=== PATIENT | female | born 1995 | race Caucasian/White ===

== ENCOUNTER 2018-03-13 23:27 | Emergency (ER) | END 2018-03-14 05:43 | disposition home or self-care (01) ==

== ENCOUNTER 2018-05-26 11:17 | Outpatient (CLI) | payer MEDICAID ==
[~2018-05-26] VITALS: Ht 165.1 cm; Wt 85.4 kg
[~2018-05-26 11:17] MED LIST: PREN1TAB62 PO
[2018-05-26 11:26] VITALS: Ht 165.1 cm; Wt 85.4 kg
[2018-05-26 11:27] VITALS: BP 136/95; PULSE 100; RESP 19
[2018-05-26] MEDS ORDERED: ASPI-818 PO (11:36)
--- NOTE | 2018-05-26 13:43 | PN ---
Triage Information Date/Time Reason for visit: R/o PIH Weeks of Gestation 26+ /Para n/a Diabetes: none Objective Vital Signs Date Temp Pulse Resp B/P (MAP) Pulse Ox O2 O2 Flow FiO2 Time Delivery Rate 05/26/18 98.4 100 19 136/95 Room Air 11:27 (109) Heart Rate: 140's Contractions: None Results/Medications Result Diagram: 05/26/18 1130 05/26/18 1130 Results 24 hrs Laboratory Tests Test 05/26/18 11:30 White Blood Count 12.1 H Red Blood Count 4.10 L Hemoglobin 12.0 Hematocrit 35.3 L Mean Corpuscular Volume 86.1 Mean Corpuscular Hemoglobin 29.3 Mean Corpuscular Hemoglobin Concent 34.0 Red Cell Distribution Width 13.3 Platelet Count 242 Mean Platelet Volume 9.3 Immature Granulocytes % 1.200 H Neutrophils % 71.0 Lymphocytes % 19.1 Monocytes % 7.8 Eosinophils % 0.7 Basophils % 0.2 Nucleated Red Blood Cells % 0.0 Immature Granulocytes # 0.140 H Neutrophils # 8.6 H Lymphocytes # 2.3 Monocytes # 0.9 Eosinophils # 0.1 Basophils # 0.0 Nucleated Red Blood Cells # 0.0 Urine Color COLORLESS Urine Clarity CLEAR Urine pH 7.0 Urine Specific [place] 1.005 Urine Ketones NEGATIVE Urine Nitrite NEGATIVE Urine Bilirubin NEGATIVE Urine Urobilinogen NEGATIVE Urine Leukocyte Esterase NEGATIVE Urine Hemoglobin NEGATIVE Urine Glucose NEGATIVE Urine Total Protein NEGATIVE Sodium Level 141 Potassium Level 4.4 Chloride Level 105 Carbon Dioxide Level 25 Anion Gap 11 Blood Urea Nitrogen 9 Creatinine 0.51 Est Glomerular Filtrat Rate mL/min > 60 Glucose Level 84 Uric Acid 3.0 L Calcium Level 9.3 Total Bilirubin 0.3 Direct Bilirubin 0.00 Indirect Bilirubin 0.3 Aspartate Amino Transf (AST/SGOT) 18 Alanine Aminotransferase (ALT/SGPT) 16 Alkaline Phosphatase 54 Total Protein 7.1 Albumin 3.9 Globulin 3.20 Albumin/Globulin Ratio 1.21 Disposition: Discharge Assessment/Plan Labs reviewed ultrasound reviewed Discharged with precautions Questions answered VALDO BARNES M.D. May 26, 2018 13:43
--- NOTE | 2018-05-26 14:12 | TRIAGE ---
OB Triage Datetime Report Generated by CPN: 05/26/2018 14:12 Datetime: 05/26/2018 13:47 Maternal Assessment Level of Consciousness: Fully Conscious DTR's/Clonus: DTRs 2+; No Clonus Headache: Denies Blurred Vision: No Nausea/Vomiting: Denies RUQ Epigastric Pain: Denies Facial Edema: None Labor Evaluation Frequency: 0 Monitor Mode: External Heart Rate FHR Baseline Rate: 150 Monitor Mode: External US FHR Baseline Changes: No Baseline Change Variability: Moderate 6-25 bpm Accelerations: 15X15 Decelerations: None Category: Category I Pain Presence: None/Denies Datetime: 05/26/2018 11:47 Labor Evaluation Frequency: 0 Monitor Mode: External Heart Rate FHR Baseline Rate: 150 Monitor Mode: External US FHR Baseline Changes: No Baseline Change Variability: Moderate 6-25 bpm Accelerations: 15X15 Decelerations: None Category: Category I Pain Presence: None/Denies Datetime: 05/26/2018 11:41 Stage of : OB Triage Assessment Type: Triage Maternal Assessment Level of Consciousness: Fully Conscious DTR's/Clonus: DTRs 2+; No Clonus Headache: Denies Blurred Vision: No Respiratory Effort: Unlabored; Regular Rhythm; Equal Expansion Breath Sounds, Left: Clear and Equal Breath Sounds, Right: Clear and Equal Nausea/Vomiting: Denies RUQ Epigastric Pain: Denies Lower Extremities Edema: None Upper Extremities Edema: None Facial Edema: None Temperature Route: Axillary Fall Risk Assessment History of Falling: (0) No Secondary Diagnosis: (0) No Ambulatory Aid: (0) Bedrest/Nurse Assist IV Therapy: (0) No Gait: (0) Normal/Bedrest/Immobile Mental Status: (0) Oriented to Own Ability Fall Score: 0 Fall Risk Score Definition: No Risk: No action required Pain Assessment Pain Scale: 0 Pain Presence: None/Denies Pain Type: N/A Datetime: 05/26/2018 11:40 EGA: 26.1 Datetime: 05/26/2018 11:05 Stage of : OB Triage Assessment Type: Triage Time of Arrival: 05/26/2018 11:05 Arrived By: Ambulatory Arrived From: Dr. Rowe Chief Complaint: Send from clinic with orders. High BP in the clinic Movement: Present Contractions: Denies/Absent Rupture of Membranes: Denies Vaginal Bleeding: None Vaginal Discharge: Denies Recent Sexual Intercouse: Denies Abdominal Trauma: Not Applicable Patient Complaints: None Time Provider Notified: 05/26/2018 13:01 Provider Notified: GODFREY Initial Plan: NST, CBC, CMP, Uric Acid, U/A, EFW and BPP Temperature Route: Oral
== END 2018-05-26 14:00 | disposition home or self-care (01) ==
LOC: OBT 11:17 → L-D 11:18 → OBT 14:00
PROVIDERS: ATTEND Obstetrics & Gynecology
DX: O13.2 Gestational [pregnancy-induced] hypertension without significant proteinuria, second trimester (principal); Z3A.26 26 weeks gestation of pregnancy
CPT/HCPCS: 76815; 76818; 80053; 81003; 84560; 85025; Z7500; G0463

== ENCOUNTER 2018-05-28 10:20 | Outpatient (CLI) | payer MEDICAID ==
[~2018-05-28] VITALS: Ht 165.1 cm; Wt 86.7 kg
[~2018-05-28 10:20] MED LIST changes: +ASPI-818 PO
[2018-05-28 10:39] VITALS: BP 125/75; PULSE 104; RESP 18; Ht 165.1 cm; Wt 86.7 kg
--- NOTE | 2018-05-28 12:14 | TRIAGE ---
OB Triage Datetime Report Generated by CPN: 05/28/2018 12:14 Datetime: 05/28/2018 11:30 Stage of : OB Triage Maternal Assessment Level of Consciousness: Fully Conscious Labor Evaluation Frequency: NONE Monitor Mode: External Resting Tone [place]: Relaxed Heart Rate FHR Baseline Rate: 145 Monitor Mode: External US Variability: Moderate 6-25 bpm Accelerations: 15X15 Decelerations: None Category: AGA Pain Assessment Pain Scale: 0 Pain Goal: 3 Vaginal Exam Membrane Status: Intact Vaginal Bleeding: None Datetime: 05/28/2018 10:37 Assessment Type: Triage Maternal Assessment Level of Consciousness: Fully Conscious DTR's/Clonus: DTRs 2+; No Clonus Headache: Denies Blurred Vision: No Respiratory Effort: Unlabored; Regular Rhythm; Equal Expansion Breath Sounds, Left: Clear and Equal Breath Sounds, Right: Clear and Equal Nausea/Vomiting: Denies RUQ Epigastric Pain: Denies Lower Extremities Edema: None Degree: None Upper Extremities Edema: None Degree: None Facial Edema: None Fall Risk Assessment History of Falling: (0) No Secondary Diagnosis: (0) No Ambulatory Aid: (0) Bedrest/Nurse Assist IV Therapy: (0) No Gait: (0) Normal/Bedrest/Immobile Mental Status: (0) Oriented to Own Ability Fall Score: 0 Fall Risk Score Definition: No Risk: No action required Datetime: 05/28/2018 10:34 Monitor Mode: External Monitor Mode: External US Datetime: 05/28/2018 10:26 Time of Arrival: 05/28/2018 10:15 EGA: 26.3 Arrived By: Ambulatory Arrived From: Home Chief Complaint: PT HERE W/ 24 HOUR URINE COLLECTION Movement: Present Rupture of Membranes: Denies Vaginal Bleeding: None Vaginal Discharge: Denies Recent Sexual Intercouse: Denies Abdominal Trauma: Not Applicable Patient Complaints: None Time Provider Notified: 05/28/2018 10:20 Provider Notified: DELSHAD Initial Plan: NST/24 HR URINE Datetime: 05/26/2018 11:41 Fall Score: 0 Fall Risk Score Definition: No Risk: No action required Datetime: 05/26/2018 11:40 EGA: 26.1
--- NOTE | 2018-05-28 17:18 | PN ---
Triage Information Date/Time Reason for visit: 24-hour urine protein Weeks of Gestation 26 weeks and 3 days /Para 001 Diabetes: none Hypertention: none Additional information 23 years old 001 at 26 weeks and 3 days was seen in triage previously for elevated blood pressure in office. However all her blood pressure in triage were within normal limits. A CBC CMP and uric acid also performed which was normal. 24-hour urine protein ordered. Patient collected 24-hour urine protein and presented to triage today for sending the urine to lab. She states good movement. She denies nausea, vomiting, shortness of breath, chest pain, headache, visual changes, vaginal bleeding or LOF. Objective Vital Signs Date Temp Pulse Resp B/P (MAP) Pulse Ox O2 O2 Flow FiO2 Time Delivery Rate 05/28/18 98.2 104 18 125/75 95 Room Air 10:39 (92) Heart Rate: 140's Contractions: None Results/Medications Result Diagram: 05/28/18 1058 Results 24 hrs Laboratory Tests Test 05/28/18 09:00 05/28/18 10:58 Urine Random Creatinine 58.79 Urine Collection Duration 24 Urine Total Volume 24 Hours 1350 Urine Creatinine Timed 24 Creatinine Clearance 119.8 Urine Total Volume (Protein) 1350 Urine Total Protein 24 Hour 121.5 Creatinine 0.46 Disposition: Discharge Assessment/Plan 23-year-old at 26 weeks and 3 days came to triage after collecting 24-ho ur urine protein. She was seen on 05/26/2018 in triage for rule out gestational hypertension, all blood pressure where within normal limits, labs were unremarkable. She collected 24-hour urine protein, result is 121. Results discussed with patient and her primary OB. Sign and symptom of labor, preeclampsia, kick count discussed in detail with patient. She expressed understanding. All of her questions answered. She discharged home in stable condition with follow-up with her primary OB in 2-3 days. WINTER GONZALEZ May 28, 2018 17:17
== END 2018-05-28 12:11 | disposition home or self-care (01) ==
LOC: L-D 10:20 → OBT 10:20
PROVIDERS: ATTEND Obstetrics & Gynecology
DX: O13.2 Gestational [pregnancy-induced] hypertension without significant proteinuria, second trimester (principal); Z3A.26 26 weeks gestation of pregnancy
CPT/HCPCS: 82565; 82575; 84156; Z7500; G0463

== ENCOUNTER 2018-06-30 12:11 | Outpatient (CLI) | payer MEDICAID ==
[~2018-06-30] VITALS: Ht 165.1 cm; Wt 89.3 kg
[2018-06-30 12:35] VITALS: Ht 165.1 cm; Wt 89.3 kg
[2018-06-30 12:42] VITALS: BP 124/83; PULSE 110; RESP 18
[2018-06-30] MEDS ORDERED: ACETAMINOPHEN 325 MG TAB PO ONE (14:30)
--- NOTE | 2018-06-30 15:11 | TRIAGE ---
OB Triage Datetime Report Generated by CPN: 06/30/2018 15:11 Datetime: 06/30/2018 14:30 Stage of : OB Triage Maternal Assessment Level of Consciousness: Fully Conscious Labor Evaluation Frequency: NONE Monitor Mode: External Resting Tone [place]: Relaxed Heart Rate FHR Baseline Rate: 145 Monitor Mode: External US Variability: Moderate 6-25 bpm Accelerations: 15X15 Decelerations: None Category: Category I Pain Assessment Pain Scale: 0 Pain Goal: 3 Vaginal Exam Membrane Status: Intact Vaginal Bleeding: None Datetime: 06/30/2018 13:30 Stage of : OB Triage Maternal Assessment Level of Consciousness: Fully Conscious Labor Evaluation Frequency: NONE Monitor Mode: External Resting Tone [place]: Relaxed Heart Rate FHR Baseline Rate: 145 Monitor Mode: External US Variability: Moderate 6-25 bpm Accelerations: 15X15 Decelerations: None Category: Category I Pain Assessment Pain Scale: 0 Pain Goal: 3 Vaginal Exam Membrane Status: Intact Vaginal Bleeding: None Datetime: 06/30/2018 12:43 Assessment Type: Triage Maternal Assessment Level of Consciousness: Fully Conscious DTR's/Clonus: DTRs 2+; No Clonus Headache: Frontal Blurred Vision: No Respiratory Effort: Unlabored; Regular Rhythm; Equal Expansion Breath Sounds, Left: Clear and Equal Breath Sounds, Right: Clear and Equal Nausea/Vomiting: Denies RUQ Epigastric Pain: Denies Lower Extremities Edema: Bilateral Lower Extremities Degree: 1+ Upper Extremities Edema: None Degree: None Facial Edema: None Fall Risk Assessment History of Falling: (0) No Secondary Diagnosis: (0) No Ambulatory Aid: (0) Bedrest/Nurse Assist IV Therapy: (0) No Gait: (0) Normal/Bedrest/Immobile Mental Status: (0) Oriented to Own Ability Fall Score: 0 Fall Risk Score Definition: No Risk: No action required Datetime: 06/30/2018 12:38 Monitor Mode: External Monitor Mode: External US Datetime: 06/30/2018 12:36 Time of Arrival: 06/30/2018 12:05 EGA: 31.1 Arrived By: Ambulatory Arrived From: Office Chief Complaint: PT. SENT FROM CLINIC FOR EVAL. OF HBP Movement: Present Contractions: Denies/Absent Rupture of Membranes: Denies Vaginal Bleeding: None Vaginal Discharge: Denies Recent Sexual Intercouse: Denies Abdominal Trauma: Not Applicable Patient Complaints: None Time Provider Notified: 06/30/2018 12:15 Provider Notified: DELSHAD Initial Plan: EFW/BPP/CBC/CMP/UA/URIC ACID/ Datetime: 05/28/2018 12:15 Stage of : OB Triage Maternal Assessment Level of Consciousness: Fully Conscious Labor Evaluation Frequency: NONE Monitor Mode: External Resting Tone [place]: Relaxed Heart Rate FHR Baseline Rate: 145 Monitor Mode: External US Variability: Moderate 6-25 bpm Accelerations: 15X15 Decelerations: None Pain Assessment Pain Scale: 0 Pain Goal: 3 Vaginal Exam Membrane Status: Intact Vaginal Bleeding: None Datetime: 05/28/2018 10:37 Fall Score: 0 Fall Risk Score Definition: No Risk: No action required Datetime: 05/28/2018 10:26 EGA: 26.3 Datetime: 05/26/2018 11:41 Fall Score: 0 Fall Risk Score Definition: No Risk: No action required Datetime: 05/26/2018 11:40 EGA: 26.1
--- NOTE | 2018-07-02 09:59 | PN ---
Triage Information Date/Time 06/30/2017 Reason for visit: elevated BP Weeks of Gestation 30 weeks /Para Diabetes: none Hypertention: none Objective Vital Signs Date Temp Pulse Resp B/P (MAP) Pulse Ox O2 O2 Flow FiO2 Time Delivery Rate 06/30/18 98.1 110 18 124/83 Room Air 12:42 (97) Heart Rate: 130's Heart Rate Comments Reactive Results/Medications Result Diagram: 06/30/18 1410 06/30/18 1410 Disposition: Discharge Assessment/Plan No sign of preeclampsia NARA DONAHUE MD Jul 02, 2018 09:59
== END 2018-06-30 15:26 | disposition home or self-care (01) ==
LOC: L-D 12:11 → OBT 12:11
PROVIDERS: ATTEND Obstetrics & Gynecology
DX: O16.3 Unspecified maternal hypertension, third trimester (principal); Z3A.30 30 weeks gestation of pregnancy
CPT/HCPCS: 76815; 76818; 80053; 81003; 84560; 85025; Z7500; Z7610; G0463

== ENCOUNTER 2018-07-21 18:54 | Inpatient (IN) | payer MEDICAID ==
[~2018-07-21] VITALS: Ht 162.6 cm; Wt 94.2 kg
[2018-07-21 19:39] VITALS: BP 131/81; PULSE 115; RESP 19; Ht 162.6 cm; Wt 94.2 kg
[2018-07-21] MEDS ORDERED: ACETAMINOPHEN 325 MG TAB PO PRN (22:00)
[2018-07-21] MEDS: DEXAMETHASONE 4 MG/ML 5 ML INJ IM SCH (23:15)
[2018-07-22] MEDS: DOCUSATE SODIUM 100 MG CAP PO SCH (09:09)
[2018-07-22] MEDS: PRENATAL VITAMIN PO SCH (09:09)
[2018-07-22] MEDS: ASPIRIN (EC) 81 MG TAB PO SCH (11:33)
[2018-07-22] MEDS: DEXAMETHASONE 4 MG/ML 5 ML INJ IM SCH ×2 (11:34→23:20)
--- NOTE | 2018-07-22 20:32 | HP ---
Date/Time of Note Date/Time of Note DATE: 07/22/18 TIME: 20:30 OB - History Hx of Present Chief Complaint: Elevated BP in clinic Estimated Due Date: Aug 31, 2018 : 2 Para: 1 Spontaneous : 0 Therapeutic : 0 Care: Good Care Ultrasounds: Normal mid trimester US Obstetrical Complications: None Medical Complications: None Past Family/Social History * Past Medical, Surgical, Family and Obstetric Histories reviewed from chart. OB Admission Exam Vital Signs Vital Signs Vital Signs Date Temp Pulse Resp B/P (MAP) Pulse Ox O2 O2 Flow FiO2 Time Delivery Rate 07/21/18 98.6 115 19 131/81 Room Air 19:39 (98) Physical Exam HEENT: WNL Heart: Rhythm Normal Lungs: Clear, Equal Abdomen: WNL Extremities: Normal Reflexes: Normal Heart Rate: 130's Accelerations: Accelerations Present Decelerations: No Decelerations Varibility: Moderate Last 72 hours Lab Results CBC & BMP 07/21/18 19:56 Liver Function Test 07/21/18 19:56 Alanine Aminotransferase (ALT/SGPT) 22 Albumin 3.4 Alkaline Phosphatase 90 Aspartate Amino Transf (AST/SGOT) 20 Direct Bilirubin 0.00 Total Protein 6.6 OB Assessment/Plan Reason for admission: other Other Assessment: R/O preeclampsia Plan: Other Other plan: Admit PIH panel 24 hour urine collection NARA Bey MD Jul 22, 2018 20:32
[2018-07-23] MEDS: DOCUSATE SODIUM 100 MG CAP PO SCH (09:11)
[2018-07-23] MEDS: PRENATAL VITAMIN PO SCH (09:11)
--- NOTE | 2018-07-23 09:13 | QN ---
Documentation Comment No complaint Afebrile VSS Strip Reactive Plt, ALT and AST normal Continue with course of steroids Perinatology consult. NARA DONAHUE MD Jul 23, 2018 09:13
[2018-07-23] MEDS: ASPIRIN (EC) 81 MG TAB PO SCH (09:44)
[2018-07-23] MEDS: DEXAMETHASONE 4 MG/ML 5 ML INJ IM SCH (11:11)
--- NOTE | 2018-07-24 03:08 | CONS ---
DATE OF ADMISSION: 07/21/2018 DATE OF CONSULTATION: 07/23/2018 PERINATOLOGY CONSULTATION HISTORY OF PRESENT ILLNESS: The patient is with intrauterine at 34 weeks and 3 days, admit lita secondary to elevated blood pressure. Her blood pressures have been in the moderate range with f ew diastolic blood pressure of 100. She is asymptomatic. OBSTETRIC HISTORY: Significant for prior preeclampsia with delivery at 37 weeks via vaginal delivery . REVIEW OF SYSTEMS: All systems reviewed. They are negative. PHYSICAL EXAMINATION: VITAL SIGNS: Blood pressure is 147/82. Physical exam is deferred. LABORATORY VALUES: AST, ALT, creatinine and platelets are normal. A 24-hour urine for protein is pe nding. heart tone is reassuring. IMPRESSION: Intrauterine at 34 weeks and 3 days with gestational hypertension, possible pr eeclampsia. Currently stable with moderate range blood pressures with few elevated diastolic blood p ressure at 100. Previous preeclampsia with the last with delivery at 37 weeks. Receiving dexamethasone. RECOMMENDATIONS: 1. Monitor blood pressures until tomorrow. If the blood pressures remain in the moderate range, ana paula jordan can be discharged home; however, she is to contact her in-laws to see if they are able to take c are of her and her kids so she can be on modified bed rest. If she can be on modified bed rest, then she can be discharged home if blood pressures are stable. She is asymptomatic. heart tones r eassuring. Otherwise, we will discuss further. 2. Continuous heart tone monitoring. 3. Follow up with a 24-hour urine for protein. After discharge, she needs to be monitored twice wee kly with testing, once a week labs. In the absence of severe preeclampsia, delivery at 37 weeks recommended. Otherwise, at the time of diagnosis of severe preeclampsia. Dictated By: CODEY GONZALEZ MD ST/[facility]S Conf#: [id number] DID#: [id number] CC: NARA DONAHUE MD;*End*
[2018-07-24] MEDS: DOCUSATE SODIUM 100 MG CAP PO SCH (09:06)
[2018-07-24] MEDS: ASPIRIN (EC) 81 MG TAB PO SCH (09:06)
[2018-07-24] MEDS: PRENATAL VITAMIN PO SCH (09:06)
--- NOTE | 2018-07-24 17:45 | QN ---
Documentation Comment No complaint Afebrile VSS Strip Reactive Plt, ALT and AST normal Continue with in hospital care per Perinatology NARA DONAHUE MD Jul 24, 2018 17:45
[2018-07-25] MEDS: PRENATAL VITAMIN PO SCH (08:42)
[2018-07-25] MEDS: DOCUSATE SODIUM 100 MG CAP PO SCH (08:42)
[2018-07-25] MEDS: ASPIRIN (EC) 81 MG TAB PO SCH (08:42)
--- NOTE | 2018-07-25 20:06 | QN ---
Documentation Comment No complaint Afebrile VSS Strip Reactive Continue with in hospital care per Perinatology NARA DONAHUE MD Jul 25, 2018 20:06
[2018-07-26] MEDS: ASPIRIN (EC) 81 MG TAB PO SCH (09:20)
[2018-07-26] MEDS: DOCUSATE SODIUM 100 MG CAP PO SCH (09:20)
[2018-07-26] MEDS: PRENATAL VITAMIN PO SCH (09:20)
--- NOTE | 2018-07-26 17:40 | QN ---
Documentation Comment No complaint Afebrile VSS Strip Reactive Continue with in hospital care. NARA DONAHUE MD Jul 26, 2018 17:40
[2018-07-27] MEDS: DOCUSATE SODIUM 100 MG CAP PO SCH (11:07)
[2018-07-27] MEDS: ASPIRIN (EC) 81 MG TAB PO SCH (11:07)
[2018-07-27] MEDS: PRENATAL VITAMIN PO SCH (11:07)
--- NOTE | 2018-07-27 19:56 | QN ---
Documentation Comment No complaint Afebrile VSS Strip Reactive 3 hour GTT abnormal Diabetic diet and teaching Perinatology follow up NARA DONAHUE MD Jul 27, 2018 19:56
[2018-07-28] MEDS: DOCUSATE SODIUM 100 MG CAP PO SCH (08:33)
[2018-07-28] MEDS: PRENATAL VITAMIN PO SCH (08:33)
[2018-07-28] MEDS: ASPIRIN (EC) 81 MG TAB PO SCH (08:34)
--- NOTE | 2018-07-28 15:36 | PN ---
DATE: 07/28/2018 The patient was admitted secondary to elevated blood pressure. I do recommend in-house management un til delivery given the fact that her blood pressures with diastolic of over 90s more frequent than be fore. Lastly, the patient's home situation is not amenable for rest and also, she has had previous p reeclampsia requiring delivery at 37 weeks. In addition, she was just diagnosed with diabetes, so eligio zabala does need to stay in the hospital in addition for diabetic management. Delivery at 37 weeks is rec ommended unless there is any evidence of severe preeclampsia for any reason or nonreassuring he art tone. In terms of her diabetes, please check with Accu-Cheks fasting premeals and 2 hours after meals, sliding scale until tomorrow when we have more glucose available to see if there is any medica tion need. Dictated By: CODEY GONZALEZ MD ST/[facility] Conf#: [id number] DID#: [id number] CC: NARA DONAHUE MD;*EndCC*
[2018-07-28] MEDS ORDERED: GLUCOSE GEL 15 GRAM TUBE PO PRN ×2 (16:00)
[2018-07-28] MEDS ORDERED: GLUCAGON 1 MG INJ IM PRN (16:00)
[2018-07-28] MEDS ORDERED: GLUCOSE GEL 15 GRAM TUBE BUCCAL PRN (16:00)
[2018-07-28] MEDS ORDERED: DEXTROSE 50% 50 ML SYRINGE IV PRN ×2 (16:00)
[2018-07-28] MEDS: INSULIN ASPART [NOVOLOG] 3 ML PEN SC SCH ×2 (17:03→21:00)
[2018-07-28] MEDS: ACCU-CHEK XX SCH ×3 (17:03→21:14)
--- NOTE | 2018-07-28 19:03 | QN ---
Documentation Comment No complaint afebrile BP 150/106 Strip Reactive Monitor blood glucose Management of GDM per Perinatology Continue in hospital care NARA DONAHUE MD Jul 28, 2018 19:03
[2018-07-29] MEDS: ACCU-CHEK XX SCH ×8 (07:30→21:00)
[2018-07-29] MEDS: INSULIN ASPART [NOVOLOG] 3 ML PEN SC SCH ×4 (07:35→21:00)
[2018-07-29] MEDS: DOCUSATE SODIUM 100 MG CAP PO SCH (09:00)
[2018-07-29] MEDS: ASPIRIN (EC) 81 MG TAB PO SCH (09:00)
[2018-07-29] MEDS: PRENATAL VITAMIN PO SCH (09:00)
--- NOTE | 2018-07-29 13:50 | QN ---
Documentation Comment No complaint Afebrile BP 150's/90's Strip Reactive Continue with in hospital care. NARA DONAHUE MD Jul 29, 2018 13:50
[2018-07-30] MEDS: ACCU-CHEK XX SCH ×8 (07:30→21:39)
[2018-07-30] MEDS: INSULIN ASPART [NOVOLOG] 3 ML PEN SC SCH ×4 (07:35→21:00)
[2018-07-30] MEDS: ASPIRIN (EC) 81 MG TAB PO SCH (09:01)
[2018-07-30] MEDS: DOCUSATE SODIUM 100 MG CAP PO SCH (09:01)
[2018-07-30] MEDS: PRENATAL VITAMIN PO SCH (09:01)
--- NOTE | 2018-07-30 16:59 | QN ---
Documentation Comment No complaint Afebrile BP 153/104 strip Reactive Plt, ALT, AST normal Continue with in hospital care. NARA DONAHUE MD Jul 30, 2018 16:59
[2018-07-31] MEDS: ACCU-CHEK XX SCH ×8 (07:30→21:00)
[2018-07-31] MEDS: INSULIN ASPART [NOVOLOG] 3 ML PEN SC SCH ×4 (07:35→21:00)
[2018-07-31] MEDS: DOCUSATE SODIUM 100 MG CAP PO SCH (09:26)
[2018-07-31] MEDS: PRENATAL VITAMIN PO SCH (09:27)
[2018-07-31] MEDS: ASPIRIN (EC) 81 MG TAB PO SCH (09:28)
--- NOTE | 2018-07-31 19:10 | QN ---
Documentation Comment No complaint Afebrile BP 155/93 Strip Reactive Continue with in hospital care. NARA DONAHUE MD Jul 31, 2018 19:10
[2018-08-01] MEDS: INSULIN ASPART [NOVOLOG] 3 ML PEN SC SCH (08:52)
[2018-08-01] MEDS: ACCU-CHEK XX SCH ×4 (08:52→20:22)
[2018-08-01] MEDS: DOCUSATE SODIUM 100 MG CAP PO SCH (08:53)
[2018-08-01] MEDS: PRENATAL VITAMIN PO SCH (08:53)
[2018-08-01] MEDS: ASPIRIN (EC) 81 MG TAB PO SCH (08:53)
--- NOTE | 2018-08-01 13:46 | QN ---
Documentation Comment No complaint Afebrile VSS Strip Reactive stable Continue with in hospital care. NARA DONAHUE MD Aug 01, 2018 13:46
[2018-08-02] MEDS: ACCU-CHEK XX SCH ×4 (07:30→20:05)
[2018-08-02] MEDS: ASPIRIN (EC) 81 MG TAB PO SCH (09:28)
[2018-08-02] MEDS: PRENATAL VITAMIN PO SCH (09:28)
[2018-08-02] MEDS: DOCUSATE SODIUM 100 MG CAP PO SCH (09:28)
--- NOTE | 2018-08-02 17:15 | QN ---
Documentation Comment No complaint Afebrile VSS Strip Reactive Stable Continue with in hospital care. NARA DONAHUE MD Aug 02, 2018 17:15
[2018-08-03] MEDS: ACCU-CHEK XX SCH ×4 (07:44→20:07)
[2018-08-03] MEDS: PRENATAL VITAMIN PO SCH (08:59)
[2018-08-03] MEDS: DOCUSATE SODIUM 100 MG CAP PO SCH (08:59)
[2018-08-03] MEDS: ASPIRIN (EC) 81 MG TAB PO SCH (08:59)
--- NOTE | 2018-08-03 16:46 | QN ---
Documentation Comment No complaint Afebrile VSS SStrip Reactive Plt, ALT and AST normal Continue with in hospital care. NARA DONAHUE MD Aug 03, 2018 16:46
[2018-08-04] MEDS: ACCU-CHEK XX SCH ×4 (08:07→20:00)
[2018-08-04] MEDS: ASPIRIN (EC) 81 MG TAB PO SCH (08:31)
[2018-08-04] MEDS: PRENATAL VITAMIN PO SCH (08:32)
[2018-08-04] MEDS: DOCUSATE SODIUM 100 MG CAP PO SCH (08:32)
--- NOTE | 2018-08-04 20:15 | QN ---
Documentation Comment No complaint Afebrile VSS Strip Reactive Continue with in hospital care. NARA DONAHUE MD Aug 04, 2018 20:15
[2018-08-05] MEDS: DOCUSATE SODIUM 100 MG CAP PO SCH (09:11)
[2018-08-05] MEDS: ASPIRIN (EC) 81 MG TAB PO SCH (09:11)
[2018-08-05] MEDS: PRENATAL VITAMIN PO SCH (09:11)
[2018-08-05] MEDS: ACCU-CHEK XX SCH ×3 (09:12→21:02)
--- NOTE | 2018-08-05 20:19 | QN ---
Documentation Comment No complaint Afebrile BP 145/90 Strip Reactive Stable Continue with in hospital care. NARA DONAHUE MD Aug 05, 2018 20:19
[2018-08-06] MEDS: ACCU-CHEK XX SCH ×4 (08:00→20:03)
[2018-08-06] MEDS: PRENATAL VITAMIN PO SCH (08:01)
[2018-08-06] MEDS: ASPIRIN (EC) 81 MG TAB PO SCH (08:01)
[2018-08-06] MEDS: DOCUSATE SODIUM 100 MG CAP PO SCH (08:01)
--- NOTE | 2018-08-06 22:08 | QN ---
Documentation Comment No complaint afebrile BP 140 /87 Strip Reactive Plt, ALT, AST normal Continue with in hospital care. NARA DONAHUE MD Aug 06, 2018 22:08
[2018-08-07] MEDS: PRENATAL VITAMIN PO SCH (08:50)
[2018-08-07] MEDS: DOCUSATE SODIUM 100 MG CAP PO SCH (08:50)
[2018-08-07] MEDS: ASPIRIN (EC) 81 MG TAB PO SCH (08:50)
--- NOTE | 2018-08-07 13:44 | QN ---
Documentation Comment No complaint Afebrile VSS Strip Reactive Continue with in hospital care NARA DONAHUE MD Aug 07, 2018 13:44
[2018-08-07] MEDS: ACCU-CHEK XX SCH (20:05)
[2018-08-08] MEDS: ACCU-CHEK XX SCH ×3 (08:34→21:22)
[2018-08-08] MEDS: DOCUSATE SODIUM 100 MG CAP PO SCH (08:58)
[2018-08-08] MEDS: PRENATAL VITAMIN PO SCH (08:58)
[2018-08-08] MEDS: ASPIRIN (EC) 81 MG TAB PO SCH (08:58)
--- NOTE | 2018-08-08 10:10 | QN ---
Documentation Comment No complaint Afebrile BP 128/92 Strip Reactive stable Continue with in hospital care. NARA DONAHUE MD Aug 08, 2018 10:10
[2018-08-09] MEDS: PRENATAL VITAMIN PO SCH (09:23)
[2018-08-09] MEDS: DOCUSATE SODIUM 100 MG CAP PO SCH (09:23)
[2018-08-09] MEDS: ACCU-CHEK XX SCH ×4 (09:23→20:05)
[2018-08-09] MEDS: ASPIRIN (EC) 81 MG TAB PO SCH (09:24)
--- NOTE | 2018-08-09 16:40 | QN ---
Documentation Comment No complaint afebrile VSS Strip Reactive Plan: Induction of labor on 08/10/2018. NARA DONAHUE MD Aug 09, 2018 16:40
[2018-08-10] MEDS: ACCU-CHEK XX SCH ×4 (07:49→20:35)
[2018-08-10] MEDS: ASPIRIN (EC) 81 MG TAB PO SCH (08:33)
[2018-08-10] MEDS: DOCUSATE SODIUM 100 MG CAP PO SCH (08:33)
[2018-08-10] MEDS: PRENATAL VITAMIN PO SCH (08:33)
--- NOTE | 2018-08-10 17:40 | QN ---
Documentation Comment No complaint Afebrile VSS Strip Reactive plan: Induction of labor NARA DONAHUE MD Aug 10, 2018 17:40
[2018-08-10] MEDS ORDERED: OXYTOCIN 30 UNITS/LR 500 ML IV PRN (18:00)
[2018-08-10] MEDS ORDERED: MISOPROSTOL 200 MCG TAB PR PRN (18:00)
[2018-08-10] MEDS ORDERED: OXYTOCIN 30 UNITS/LR 500 ML IV SCH ×2 (18:00)
[2018-08-10] MEDS ORDERED: METHYLERGONOVINE 0.2 MG INJ IM PRN (18:00)
[2018-08-10] MEDS ORDERED: AMPICILLIN 2 GM/NS (PMX) 100 ML IV ONE (18:00)
[2018-08-10] MEDS ORDERED: BUTORPHANOL 2 MG INJ IV PRN ×2 (18:00)
[2018-08-10] MEDS ORDERED: CARBOPROST 250 MCG INJ IM PRN (18:00)
[2018-08-10] MEDS ORDERED: LIDOCAINE 1% (MPF) 30 ML INJ INJ PRN (18:00)
[2018-08-10] MEDS: LACTATED RINGER'S 1,000 ML IV SCH (20:43)
[2018-08-10] MEDS: MISOPROSTOL 50 MCG CAPSULE PO SCH (21:09)
[2018-08-11] MEDS: MISOPROSTOL 50 MCG CAPSULE PO SCH ×3 (01:11→10:58)
[2018-08-11] MEDS: AMPICILLIN 1 GM/NS (PMX) 50 ML IV SCH ×5 (01:11→17:02)
[2018-08-11] MEDS: DEXTROSE 5%-LR 1,000 ML IV PRN ×2 (06:07→16:25)
[2018-08-11] MEDS: DOCUSATE SODIUM 100 MG CAP PO SCH (09:00)
[2018-08-11] MEDS ORDERED: OXYTOCIN 30 UNITS/LR 500 ML IV SCH (12:30)
--- NOTE | 2018-08-11 14:41 | PREAC ---
Date/Time of Note Date/Time of Note DATE: 08/11/18 TIME: 14:40 Anesthesia Eval and Record Evaluation Time Pre-Procedure Interview DATE: 08/11/18 TIME: 14:40 Age 23 Sex female NPO: 8 hrs Preoperative diagnosis labor pain Planned procedure labor epidural Past Medical History Past Medical History: None Surgery & Anesthesia Issues No known issue Meds Anticoagulation: No Beta Ivana within 24 hr: No Reason Beta Ivana not given: Pt. not on B-Ivana Reported Medications Aspirin (Aspirin Low Dose) 81 Mg Tablet.dr, 81 MG PO DAILY, #30 TAB 05/26/18 Vit-Iron Fumarate-FA ( Vitamin Tablet) 1 Each Tablet, 1 TAB PO DAILY, TAB 02/13/16 Current Medications Docusate Sodium (Colace) 100 mg DAILY PO Last administered on 08/10/18at 08:33; Admin Dose 100 MG; Start 07/22/18 at 09:00 Acetaminophen (Tylenol Tab) 650 mg Q4H PRN PO .PAIN OR TEMP; Start 07/21/18 at 22:00 Miscellaneous Information 1 ea NOTE XX ; Start 07/28/18 at 16:00 Glucose (Glutose) 15 gm Q15M PRN PO DECREASED GLUCOSE; Start 07/28/18 at 16:00 Glucose (Glutose) 22.5 gm Q15M PRN PO DECREASED GLUCOSE; Start 07/28/18 at 16:00 Dextrose (D50w Syringe) 25 ml Q15M PRN IV DECREASED GLUCOSE; Start 07/28/18 at 16:00 Dextrose (D50w Syringe) 50 ml Q15M PRN IV DECREASED GLUCOSE; Start 07/28/18 at 16:00 Glucagon (Glucagen) 1 mg Q15M PRN IM DECREASED GLUCOSE; Start 07/28/18 at 16:00 Glucose (Glutose) 15 gm Q15M PRN BUCCAL DECREASED GLUCOSE; Start 07/28/18 at 16:00 Lactated Ringer's 1,000 ml @ 125 mls/hr Q8H IV Last administered on 08/10/18at 20:43; Admin Dose 125 MLS/HR; Start 08/10/18 at 20:00; Stop 08/12/18 at 08:00 Ampicillin 50 ml @ 100 mls/hr Q4H IV Last administered on 08/11/18at 13:19; Admin Dose 100 MLS/HR; Start 08/10/18 at 22:00 Butorphanol Tartrate (Stadol) 1 mg Q2H PRN IV .PAIN; Start 08/10/18 at 18:00 Butorphanol Tartrate (Stadol) 2 mg Q2H PRN IV .PAIN; Start 08/10/18 at 18:00 Lidocaine (Xylocaine 1% (Mpf)) 30 ml ONCE PRN INJ .EPISIOTOMY; Start 08/10/18 at 18:00 Oxytocin/Lactated Ringer's 500 ml @ 500 mls/hr ONCE POST IV ; Start 08/10/18 at 18:00 Oxytocin/Lactated Ringer's 500 ml @ 125 mls/hr POST IV ; Start 08/10/18 at 18:00 Oxytocin/Lactated Ringer's 500 ml @ 0 mls/hr ONCE PRN IV .VAGINAL BLEEDING; Start 08/10/18 at 18:00 Methylergonovine Maleate (Methergine) 0.2 mg ONCE PRN IM .VAGINAL BLEEDING; Start 08/10/18 at 18:00 Carboprost Tromethamine (Hemabate) 250 mcg ONCE PRN IM .VAGINAL BLEEDING; Start 08/10/18 at 18:00 Misoprostol (Cytotec) 1,000 mcg ONCE PRN MD .VAGINAL BLEEDING; Start 08/10/18 at 18:00 Dextrose/Lactated Ringer's 1,000 ml @ 125 mls/hr Q8H PRN IV DECREASED GLUCOSE Last administered on 08/11/18at 06:07; Admin Dose 125 MLS/HR; Start 08/10/18 at 23:00 Oxytocin/Lactated Ringer's 500 ml @ 0 mls/hr FOR INDUCTION IV Last administered on 08/11/18at 13:38; Admin Dose 1 MLS/HR; Start 08/11/18 at 12:30 Meds reviewed: Yes Allergies Coded Allergies: No Known Allergy (Unverified , 07/21/18) Allergies Reviewed: Yes Labs/Studies Labs Reviewed: Reviewed by anesthesiologist Result Diagram: 08/10/18 1806 08/10/18 1806 Laboratory Tests 08/10/18 18:06 Blood Bank Test 08/10/18 18:06 Antibody Screen NEGATIVE Blood Type O POSITIVE test: Positive Pre-procedure Exam Airway: Adequate mouth opening, Adequate thyromental dist Mallampati: Mallampati III Teeth: Normal Lung: Normal Heart: Normal ASA Physical Status ASA physical status: 2 Emergency: None Planned Anesthetic Neuraxial: Epidural Planned Pain Management Epidural, Parenteral pain med, Other neuraxial med Pre-operative Attestations Prior to commencing anesthesia and surgery, the patient was re-evaluated, there was verification of: *The patient's identity *The results of appropriate recent lab work and preoperative vital signs *The above evaluation not changing prior to induction *Anesthetic plan, risk benefits, alternative and complications discussed with patient/family; questions answered; patient/family understands, accepts and wishes to proceed. MARLA ANDINO MD Aug 11, 2018 14:41
[2018-08-11] MEDS ORDERED: ONDANSETRON 4 MG INJ IV PRN (15:00)
[2018-08-11] MEDS ORDERED: ZOLPIDEM 5 MG TAB PO PRN (15:00)
[2018-08-11] MEDS ORDERED: DIPHENHYDRAMINE 50 MG INJ IV PRN (15:00)
[2018-08-11] MEDS ORDERED: FENTAnyl 2MCG/ML-ROPIV 0.2% 100 ML BAG EPI SCH (15:00)
[2018-08-11] MEDS ORDERED: NALOXONE (0.4 MG/ML) INJ IV PRN (15:00)
[2018-08-11] MEDS ORDERED: HYDROmorphONE 0.5 MG/0.5 ML SYG IV PRN ×2 (15:00)
[2018-08-11] MEDS ORDERED: KETOROLAC 30 MG INJ IV PRN (15:00)
[2018-08-11] MEDS: LACTATED RINGER'S 1,000 ML IV SCH ×2 (16:01→16:02)
--- NOTE | 2018-08-11 18:15 | LDN ---
Date/Time of Note Date/Time of Note DATE: 08/11/18 TIME: 18:13 Delivery Summary Weeks of Gestation 37 weeks Placenta Delivered: Spontaneously Meconium: none Episiotomy: No Perineal laceration: 0 Anesthesia type: Epidural Estimated blood loss: 200 Sponge & Needle done & correct: Yes All needle counts correct: Yes Any foreign bodies felt in the: No Infant Delivery Information Sex Sex: male Apgars 1 Minute: 8 5 Minute: 9 Suctioning Nose & mouth suctioned at lorena: No Delee suction performed: No Umbilical Cord Umbilical cord with: 3 Vessels Cord presentations: nuchal cord Nuchal cord present X: 1 Cord Blood was obtained: Yes Mother & Baby Disposition Disposition Mom & Baby to Maternity; Good: Yes NARA DONAHUE MD Aug 11, 2018 18:15
[2018-08-11 20:00] VITALS: BP 147/112; PULSE 94; RESP 19
[2018-08-11 21:00] VITALS: BP 154/115; PULSE 111; RESP 20
[2018-08-11] MEDS ORDERED: HYDROCODONE/APAP (5/325) TAB PO PRN (21:00)
[2018-08-11] MEDS ORDERED: ACETAMINOPHEN 325 MG TAB PO PRN (21:00)
[2018-08-11] MEDS ORDERED: WITCH HAZEL/GLYCERIN PAD PR PRN (21:00)
[2018-08-11] MEDS ORDERED: MISOPROSTOL 200 MCG TAB PR PRN (21:00)
[2018-08-11] MEDS ORDERED: OXYTOCIN 30 UNITS/LR 500 ML IV PRN (21:00)
[2018-08-11] MEDS ORDERED: DIBUCAINE 1% 30 GM OINT TOP PRN (21:00)
[2018-08-11] MEDS ORDERED: CARBOPROST 250 MCG INJ IM PRN (21:00)
[2018-08-11] MEDS ORDERED: BENZOCAINE 20% 56 ML SPRAY TOP PRN (21:00)
[2018-08-11] MEDS: SENNA/DOCUSATE NA (8.6MG/50MG) TAB PO SCH (21:52)
[2018-08-11] MEDS: LACTATED RINGER'S 1,000 ML IV* SCH (21:59)
[2018-08-11 22:00] VITALS: BP 153/104; PULSE 89; RESP 19
[2018-08-11 23:00] VITALS: BP 150/101; PULSE 85; RESP 19
[2018-08-11] MEDS: IBUPROFEN 600 MG TAB PO SCH (23:39)
[2018-08-12] VITALS: BP 146/96; PULSE 90; RESP 20
[2018-08-12 02:00] VITALS: BP 144/93; PULSE 83; RESP 18
[2018-08-12 04:00] VITALS: BP 137/89; PULSE 68; RESP 19
[2018-08-12] MEDS: LACTATED RINGER'S 1,000 ML IV* SCH ×3 (06:00→20:42)
[2018-08-12] MEDS: IBUPROFEN 600 MG TAB PO SCH ×4 (06:05→23:47)
[2018-08-12 08:30] VITALS: BP 126/80; PULSE 76; RESP 18
[2018-08-12] MEDS: SENNA/DOCUSATE NA (8.6MG/50MG) TAB PO SCH ×2 (10:38→21:46)
[2018-08-12 16:13] VITALS: BP 130/78; PULSE 77; RESP 18
[2018-08-12 19:10] VITALS: BP 136/90; PULSE 73; RESP 18
--- NOTE | 2018-08-12 22:32 | PN ---
Date/Time of Note Date/Time of Note DATE: 08/12/18 TIME: 22:26 OB Subjective Subjective Subjective PPD# 1 Patient is doing well. She denies nausea, vomiting, shortness of breath, chest pain, headache. She has been ambulating without difficulty, tolerating regular diet. Pain is well controlled on current medications OB Objective Objective Objective VS - Last 72 Hours, by Label Date Temp Pulse Resp B/P (MAP) Pulse Ox O2 O2 Flow FiO2 Time Delivery Rate 08/12/18 98.3 77 18 130/78 Room Air 16:13 (95) 08/12/18 98.3 76 18 126/80 Room Air 08:30 (95) 08/12/18 98.5 68 19 137/89 Room Air 04:00 (105) 08/12/18 83 18 144/93 Room Air 02:00 (110) 08/12/18 98.4 90 20 146/96 Room Air 00:00 (113) 08/11/18 85 19 150/101 Room Air 23:00 (117) 08/11/18 89 19 153/104 Room Air 22:00 (120) 08/11/18 111 20 154/115 Room Air 21:00 (128) 08/11/18 98.2 94 19 147/112 Room Air 20:00 (124) General: AAO X 3, comfortable, NAD, appropriate mood and affect. ABD: +BS. Soft, non-tender. Uterus 2 cm below umbilicus Flank: No CVA tenderness (B/L) LE: Mild edema. No clubbing, cyanosis, thigh or calf tenderness (B/L). Homans 'sign is negative Laboratory Tests Test 08/11/18 01:13 08/11/18 05:24 08/11/18 08:58 08/11/18 13:14 Bedside Glucose 134 mg/dL 91 mg/dL 99 mg/dL 92 mg/dL Test 08/11/18 15:06 08/11/18 17:01 08/11/18 18:25 08/11/18 20:14 Bedside Glucose 79 mg/dL 89 mg/dL Sodium Level 138 mmol/L Potassium Level 4.0 mmol/L Chloride Level 109 mmol/L Carbon Dioxide 21 mmol/L Level Anion Gap 8 Blood Urea Nitrogen 7 mg/dl Creatinine 0.56 mg/dl Est Glomerular > 60 mL/min Filtrat Rate mL/min Glucose Level 84 mg/dl Uric Acid 4.9 mg/dl Calcium Level 9.6 mg/dl Total Bilirubin 0.7 mg/dl Direct Bilirubin 0.00 mg/dl Indirect Bilirubin 0.7 mg/dl Aspartate Amino 39 IU/L Transf (AST/SGOT) Alanine 27 IU/L Aminotransferase (A LT/SGPT) Alkaline 168 IU/L Phosphatase Total Protein 6.5 g/dl Albumin 3.5 g/dl Globulin 3.00 g/dl Albumin/Globulin 1.16 Ratio White Blood Count 13.1 10^3/ul Red Blood Count 4.28 10^6/ul Hemoglobin 12.4 g/dl Hematocrit 36.1 % Mean Corpuscular 84.3 fl Volume Mean Corpuscular 29.0 pg Hemoglobin Mean Corpuscular 34.3 g/dl Hemoglobin Concent Red Cell 13.2 % Distribution Width Platelet Count 167 10^3/UL Mean Platelet 9.8 fl Volume Immature 0.800 % Granulocytes % Neutrophils % 81.2 % Lymphocytes % 10.5 % Monocytes % 7.1 % Eosinophils % 0.2 % Basophils % 0.2 % Nucleated Red Blood 0.0 /100WBC Cells % Immature 0.110 10^3/ul Granulocytes # Neutrophils # 10.7 10^3/ul Lymphocytes # 1.4 10^3/ul Monocytes # 0.9 10^3/ul Eosinophils # 0.0 10^3/ul Basophils # 0.0 10^3/ul Nucleated Red Blood 0.0 10^3/ul Cells # Test 08/12/18 07:24 White Blood Count 10.3 10^3/ul Red Blood Count 4.09 10^6/ul Hemoglobin 11.6 g/dl Hematocrit 34.3 % Mean Corpuscular 83.9 fl Volume Mean Corpuscular 28.4 pg Hemoglobin Mean Corpuscular 33.8 g/dl Hemoglobin Concent Red Cell 13.2 % Distribution Width Platelet Count 164 10^3/UL Mean Platelet 10.4 fl Volume Immature 0.800 % Granulocytes % Neutrophils % 67.2 % Lymphocytes % 20.5 % Monocytes % 10.2 % Eosinophils % 0.9 % Basophils % 0.4 % Nucleated Red Blood 0.0 /100WBC Cells % Immature 0.080 10^3/ul Granulocytes # Neutrophils # 6.9 10^3/ul Lymphocytes # 2.1 10^3/ul Monocytes # 1.1 10^3/ul Eosinophils # 0.1 10^3/ul Basophils # 0.0 10^3/ul Nucleated Red Blood 0.0 10^3/ul Cells # OB Assessment/Plan Other plan: 23 years old 2 para 2001 with A1 gestational diabetes and preeclampsia s/p normal vaginal delivery at 37 weeks. PPD#1 - AF, VSS - Baby is doing well, at bed side. She is bonding well - Contraception methods with R/B/A/FR discussed - Continue care - She currently has normal blood pressure - Discharge home tomorrow - Rx and instruction given - Follow up in 2 and 6 weeks at clinic 2. Gestational diabetes A1: Blood sugar well controlled antepartum and . 75 g 2-hour glucose test at 6-12 weeks after delivery discussed with patient. WINTER GONZALEZ Aug 12, 2018 22:32
[2018-08-13] MEDS: IBUPROFEN 600 MG TAB PO SCH ×3 (05:44→17:39)
[2018-08-13 08:30] VITALS: BP 131/87; PULSE 64; RESP 18
[2018-08-13] MEDS ORDERED: DIPHTH/TET/ACEL PERTUSS (ADULT) 0.5 ML VIAL IM* ONE (09:00)
[2018-08-13] MEDS: SENNA/DOCUSATE NA (8.6MG/50MG) TAB PO SCH (09:00)
--- NOTE | 2018-08-13 13:01 | PN ---
Date/Time of Note Date/Time of Note DATE: 08/13/18 TIME: 12:55 OB Subjective Subjective Subjective PPD# 2 Patient is doing well. She denies nausea, vomiting, shortness of breath, chest pain, headache. She has been ambulating without difficulty, tolerating regular diet. Pain is well controlled on current medications OB Objective Objective Objective Vital Signs Date Temp Pulse Resp B/P (MAP) Pulse Ox O2 O2 Flow FiO2 Time Delivery Rate 08/13/18 98.0 64 18 131/87 Room Air 08:30 (102) General: AAO X 3, comfortable, NAD, appropriate mood and affect. ABD: +BS. Soft, non-tender. Uterus 2 cm below umbilicus Flank: No CVA tenderness (B/L) LE: Mild edema. No clubbing, cyanosis, thigh or calf tenderness (B/L). Homans 'sign is negative OB Assessment/Plan Other plan: 23 years old 2 para 2001 with A1 gestational diabetes and preeclampsia s/p normal vaginal delivery at 37 weeks. PPD#2 - AF, VSS - Baby is doing well, at bed side. She is bonding well - Contraception methods with R/B/A/FR discussed - Continue care - Discharge home - Rx and instruction given - Follow up in 3 days and 6 weeks at clinic 2. Preeclampsia: She has no symptom of preeclampsia with severe features. Labetalol 100 mg every 12 hours ordered. Follow-up with the primary OB in 3 days. 3. Gestational diabetes A1: Blood sugar well controlled antepartum and . 75 g 2-hour glucose test at 6-12 weeks after delivery discussed with patient. WINTER GONZALEZ Aug 13, 2018 13:01
--- NOTE | 2018-08-13 13:06 | DS ---
Date/Time of Note Date/Time of Note DATE: 08/13/18 TIME: 13:01 Obstetrical Discharge Record Final Diagnosis Final Diagnosis: Term delivered Other Final Diagnosis 23 years old 2 para 2002 with A1 gestational diabetes and preeclampsia s/p normal vaginal delivery at 37 weeks. PPD#2. course was unremarkable. She is ambulating and tolerating regular diet. She is voiding without difficulty. She had bowel movement. Pain is controlled on current medication. - AF, VSS - Baby is doing well, at bed side. She is bonding well - Contraception methods with R/B/A/FR discussed - Continue care - Discharge home - Rx and instruction given - Follow up in 3 days and 6 weeks at clinic 2. Preeclampsia: She has no symptom of severe features of preeclampsia. Lab etalol 100 mg daily ordered. Follow-up with the primary OB in 3 days. 3. Gestational diabetes A1: Blood sugar well controlled antepartum and . 75 g 2-hour glucose test at 6-12 weeks after delivery discussed with patient. Vaginal Delivery Obstetrical Delivery: Spontaneous Condition on Discharge Physical Assessment Voiding: Yes Bowel Movement: Yes Breast: Soft, non-tender Fundus: Firm Calf Tenderness: No Patient Condition: Stable WINTER GONZALEZ Aug 13, 2018 13:06
[2018-08-13 16:00] VITALS: BP 136/89; PULSE 75; RESP 18
[2018-08-13 17:38] VITALS: BP 134/90; PULSE 75; RESP 18
--- NOTE | 2018-08-14 19:07 | DELSUM ---
Delivery Summary A-C Datetime Report Generated by CPN: 08/14/2018 19:06 DELIVERY PERSONNEL Supervisor Gear Repair: Debbie Thakur MATERNAL INFORMATION Delivery Anesthesia: Epidural Medications in Delivery: LR W/ 30 UNITS PITOCIN Placenta Cultured: No Maternal Complications: None Other Maternal Complications: GHTN/GDM LABOR SUMMARY EDC: 08/31/2018 00:00 No. Babies in Womb: 1 Attempted: No Labor Anesthesia: Epidural LABOR INFORMATION Reason for Induction: Gest. HTN/PreEclam/Eclamp; Maternal Diabetes Onset of Labor: 08/10/2018 21:09 Complete Dilatation: 08/11/2018 17:43 Cervical Ripening Agents: Cytotec @ Oxytocin: Induction Group B Beta Strep: Not Done Antibiotics # of Doses: 6 Antibiotics Time of Last Dose: 08/11/2018 16:59 Steroids Given: None Reason Steroids Not Administered: Not Applicable MEMBRANES Membranes Rupture Method: Artificial Rupture of Membranes: 08/11/2018 14:11 Length of Rupture (hr): 3.73 Amniotic Fluid Color: Clear Amniotic Fluid Amount: Moderate Amniotic Fluid Odor: None STAGES OF LABOR Stage 1 hr: 20 Stage 1 min: 34 Stage 2 hr: 0 Stage 2 min: 12 Stage 3 hr: 0 Stage 3 min: 4 Total Time in Labor hr: 20 Total Time in Labor min: 50 VAGINAL DELIVERY Episiotomy: None Laceration Extension: N/A Laceration Type: None Laceration Repair: Not Applicable Initial Vag Sponge Count: 10 Final Vag Sponge Count: 10 Initial Vag Sharps Count: 1 Final Vag Sharps Count: 1 Sponge Count Correct: Yes; Vaginal Sweep Performed Sharps Count Correct: Yes BABY A INFORMATION Infant Delivery Date/Time: 08/11/2018 17:55 Method of Delivery: Vaginal Born in Route : No : N/A Forceps: N/A Vacuum Extraction: N/A Shoulder Dystocia : N/A SHOULDER DYSTOCIA BABY A Infant Delivery Date/Time: 08/11/2018 17:55 PRESENTATION/POSITION BABY A Presentation: Cephalic Cephalic Presentation: Vertex Breech Presentation: N/A PLACENTA INFORMATION BABY A Placenta Delivery Time : 08/11/2018 17:59 Placenta Method of Delivery: Spontaneous Placenta Status: Delivered SCORES BABY A Heart Rate 1 min: >100 bpm Resp Effort 1 min: Good Cry Reflex Irritability 1 min: Cough/Sneeze/Pulls Away Muscle Tone 1 min: Some Flexion of Extrem Color 1 min: Body [place], Extremit Blue Resuscitation Effort 1 min: Tactile Stimulation SCORE 1 MIN: 8 Heart Rate 5 min: >100 bpm Resp Effort 5 min: Good Cry Reflex Irritability 5 min: Cough/Sneeze/Pulls Away Muscle Tone 5 min: Some Flexion of Extrem Color 5 min: Completely [place] Resuscitation Effort 5 min: Tactile Stimulation SCORE 5 MIN: 9 INFANT INFORMATION BABY A Gestational Age at Delivery: 37.1 Gestational Status: Early Term- 37- 38.6 Weeks Outcome : Liveborn Condition : Stable Sex: Male IDENTIFICATION/MEDS BABY A ID Band Number: [id number] ID Band Location: Right Leg; Left Arm Sensor Applied: Yes Sensor Number: [id number] Sensor Location : Cord Clamp Vitamin K Given : Not Given Erythromycin Given: Not Given WEIGHT/LENGTH BABY A Infant Birthweight (gm): 2845 Weight (lb): 6 Weight (oz): 4 Infant Length (in): 18.50 Length (cm): 46.99 CORD INFORMATION BABY A No. Cord Vessels: 3 Nuchal Cord : Around Neck x1, Tight Cord Blood Taken: Yes Infant Suction: Mouth; Nose
== END 2018-08-13 19:05 | disposition home or self-care (01) | DRG 807 ==
LOC: OBT 18:54 → L-D 18:56 → OBT 21:38 → PP1 07-22 07:56 → L-D 08-10 20:24 → PP1 08-11 20:03
PROVIDERS: ADMIT Obstetrics & Gynecology; ATTEND Obstetrics & Gynecology
PROC: 10E0XZZ Delivery of Products of Conception, External Approach (ICD-10-PCS; principal; 2018-08-11)
PROC: 3E033VJ Introduction of Other Hormone into Peripheral Vein, Percutaneous Approach (ICD-10-PCS; 2018-08-11)
PROC: 3E0R3GC Introduction of Other Therapeutic Substance into Spinal Canal, Percutaneous Approach (ICD-10-PCS; 2018-08-12)
DX: O14.94 Unspecified pre-eclampsia, complicating childbirth (principal); Z37.0 Single live birth; O69.81X0 Labor and delivery complicated by cord around neck, without compression, not applicable or unspecified; O24.429 Gestational diabetes mellitus in childbirth, unspecified control; Z3A.37 37 weeks gestation of pregnancy
CPT/HCPCS: 62319; 76815; 76818; 80053; 80076; 81001; 82575; 82951; 82962; 83036; 84156; 84560; 85025; 85610; 85730; 86592; 86850; 86900; 86901; 87340; G0463; J0290; J1100; J1815; J2590; J3010; J7120